=== PATIENT | male | born 1970 | race Caucasian/White ===

== ENCOUNTER 2024-04-14 12:09 | Emergency (ER) | payer BC ==
[~2024-04-14] VITALS: Ht 165.1 cm; Wt 65.8 kg
[2024-04-14 12:15] VITALS: BP 183/88; PULSE 67; RESP 16; TEMP 97.8; O2SAT 96
[2024-04-14] MEDS ORDERED: LOSARTAN 50 MG TAB ONE (12:42)
[2024-04-14] MEDS ORDERED: ACET500T99 PO (12:49)
[2024-04-14] MEDS: KETOROLAC 30 MG/ML VIAL IM ONE (12:49)
[2024-04-14] MEDS ORDERED: LOSA50TA57 PO (12:49)
[2024-04-14] MEDS ORDERED: DICL100G31 TP (12:49)
[2024-04-14] MEDS: LOSARTAN 50 MG TAB PO ONE (12:49)
[2024-04-14] MEDS ORDERED: COROTSOL LEFT EAR (12:57)
[2024-04-14 13:20] VITALS: BP 176/82; PULSE 65; RESP 16; TEMP 97.8; O2SAT 97
== END 2024-04-14 13:20 | disposition home or self-care (01) ==
LOC: MED 12:09
DX: M25.521 Pain in right elbow (principal); M25.531 Pain in right wrist; H92.02 Otalgia, left ear; I10 Essential (primary) hypertension; Z76.0 Encounter for issue of repeat prescription; Z79.899 Other long term (current) drug therapy
CPT/HCPCS: 96372; 99283; J1885